=== PATIENT | female | born 1985 | race Hispanic/Latino ===

== ENCOUNTER 2020-01-21 13:00 | Outpatient (CLI) | payer OTHER | END 2020-01-21 20:09 | disposition home or self-care (01) | LOC: LAB 13:00 | DX: Z20.828 Contact with and (suspected) exposure to other viral communicable diseases (principal) | CPT/HCPCS: 87635; G2023; U0003 ==

== ENCOUNTER 2020-05-31 12:00 | Outpatient (CLI) | payer OTHER | END 2020-05-31 21:59 | disposition home or self-care (01) | LOC: LAB 12:00 | PROVIDERS: ATTEND Family Medicine | DX: Z20.828 Contact with and (suspected) exposure to other viral communicable diseases (principal) | CPT/HCPCS: 87635; G2023; U0003 ==

== ENCOUNTER 2020-09-19 10:20 | Outpatient (CLI) | payer OTHER | END 2020-09-19 19:20 | disposition home or self-care (01) | LOC: LAB 10:20 | PROVIDERS: ATTEND Family Medicine | DX: Z20.828 Contact with and (suspected) exposure to other viral communicable diseases (principal); J01.90 Acute sinusitis, unspecified; T78.40XA Allergy, unspecified, initial encounter ==

== ENCOUNTER 2021-02-06 09:01 | Outpatient (CLI) | payer OTHER | END 2021-02-06 21:44 | disposition home or self-care (01) | LOC: LAB 09:01 | PROVIDERS: ATTEND Family Medicine | DX: J02.9 Acute pharyngitis, unspecified (principal); J34.89 Other specified disorders of nose and nasal sinuses | CPT/HCPCS: 87635; G2023; U0003 ==